=== PATIENT | male | born 1930 | race Caucasian/White ===

== ENCOUNTER → 2017-03-29 | Outpatient (CLI) | payer MEDICARE, OTHER ==
[~2017-03-29] MED LIST: ASPIR LOW81 MG PO; ASPIRIN81 M1 PO; ATIVAN1 MG PO; CALCIUM + D 6001 TA1 PO; CENTRUM SINGLE400 IU PO; CIPROFLOXACIN500 MG PO; CLEOCIN HCL300 MG PO; DIOVAN40 MG PO; FLAGYL 500 MG500 MG PO; FLOMAX0.4 MG PO; LUTEIN20 MG PO; MOM30 ML PO; NATURE S BLEND PO; NITROLINGU0.4 MG/ACT SL; OCUVITE1 TA1 PO; PLAVIX75 MG PO; SIMVASTATIN20 MG PO; THE MEDICINE S400 IU PO; TYLENOL325 M1 PO; VISION VITAMINS1 TAB PO; VITAMIN D2000 IU PO; VITAMIN D400 I1 PO; [UNRECOGNIZED DRUG - REMARK] PO
== END | disposition home or self-care (01) ==
LOC: RAD 12:20
DX: M25.551 Pain in right hip (principal)

== ENCOUNTER 2017-12-19 23:53 | Emergency (ER) | payer MEDICARE, OTHER ==
[~2017-12-19] VITALS: Ht 172.7 cm; Wt 68.9 kg
[2017-12-20 00:38] LABS: BASO % 0.1 % (0.0-1.0); EOS % 0.1 % (1.0-4.0); HEMATOCRIT 33.3 % (42.0-52.0); HEMOGLOBIN 11.1 g/dl (14.0-18.0); LYMPH # 0.6 10*3/uL (1.3-4.4); LYMPH % 7.1 % (27.0-41.0); MEAN CELL VOLUME 94.3 fl (80.0-94.0); MEAN CORPUSCULAR HGB 31.4 pg (27.0-31.0); MEAN CORPUSCULAR HGB CONC 33.3 g/dl (33.0-37.0); MEAN PLATELET VOLUME 10.7 fl (9.6-12.3); MONO # 0.3 10*3/uL (0.1-1.0); MONO % 3.3 % (3.0-9.0); NEUT # 7.2 10*3/uL (2.3-7.9); NEUT % 89.2 % (47.0-73.0); PLATELET COUNT AUTOMATED 134 10*3/uL (130-400); RED BLOOD COUNT 3.53 10*6/uL (4.50-5.90); RED CELL DISTRI WIDTH 12.6 % (0-14.5); WHITE BLOOD COUNT 8.1 10*3/uL (4.8-10.8)
[2017-12-20 01:00] LABS: ALBUMIN 4.6 gm/dl (3.1-4.5); ALKALINE PHOSPHATASE 67 U/L (45-117); BUN 39 mg/dl (7-24); CHLORIDE 104 mmol/L (98-107); CREATININE 1.79 mg/dL (0.70-1.30); LIPASE 173 U/L (73-393); POTASSIUM 4.8 mmol/L (3.5-5.1); SGPT/ALT 26 U/L (12-78); SODIUM 140 mmol/L (136-145); TOTAL PROTEIN 7.7 gm/dL (6.4-8.2)
[2017-12-20 01:02] LABS: SGOT/AST 32 IU/L (3-35)
[2017-12-20 01:03] LABS: TROPONIN I < 0.015 ng/ml (<0.045)
[2017-12-20 01:45] LABS: INTERNATIONAL NORM RATIO 1.1 (2.0-3.5)
[2017-12-20 02:41] VITALS: BP 169/76
== END 2017-12-20 03:03 | disposition short-term general hospital (02) ==
LOC: ED 23:53
PROVIDERS: Physician Assistant
DX: K56.699 Other intestinal obstruction unspecified as to partial versus complete obstruction (principal); Z88.8 Allergy status to other drugs, medicaments and biological substances; Z79.82 Long term (current) use of aspirin

== ENCOUNTER → 2018-01-01 | Outpatient (CLI) | payer MEDICARE, OTHER | END | disposition home or self-care (01) | LOC: RAD 13:52 | DX: M51.36 Other intervertebral disc degeneration, lumbar region (principal); M47.896 Other spondylosis, lumbar region; M47.897 Other spondylosis, lumbosacral region ==

== ENCOUNTER → 2018-01-15 | Outpatient (CLI) | payer MEDICARE, OTHER | END | disposition home or self-care (01) | LOC: US 09:49 | DX: M47.16 Other spondylosis with myelopathy, lumbar region (principal); M79.651 Pain in right thigh ==

== ENCOUNTER → 2018-01-17 | Outpatient (CLI) | payer MEDICARE, OTHER | END | disposition home or self-care (01) | LOC: MRI 00:19 | DX: M48.061 Spinal stenosis, lumbar region without neurogenic claudication (principal); M47.16 Other spondylosis with myelopathy, lumbar region; Z91.81 History of falling ==

== ENCOUNTER → 2018-03-14 | Outpatient (CLI) | payer MEDICARE, OTHER | END | disposition home or self-care (01) | LOC: MRI 08:43 | DX: M50.320 Other cervical disc degeneration, mid-cervical region, unspecified level (principal); M54.12 Radiculopathy, cervical region ==

== ENCOUNTER → 2018-09-04 | Outpatient (CLI) | payer MEDICARE, OTHER | END | disposition home or self-care (01) | LOC: RAD 09:53 | DX: R05 Cough (principal); R09.89 Other specified symptoms and signs involving the circulatory and respiratory systems; I10 Essential (primary) hypertension; Z87.891 Personal history of nicotine dependence ==

== ENCOUNTER → 2018-11-28 | Outpatient (CLI) | payer MEDICARE, OTHER | END | disposition home or self-care (01) | LOC: RESCLI 12:56 | DX: K52.9 Noninfective gastroenteritis and colitis, unspecified (principal); R68.89 Other general symptoms and signs; R00.1 Bradycardia, unspecified; M19.90 Unspecified osteoarthritis, unspecified site; I10 Essential (primary) hypertension; E78.00 Pure hypercholesterolemia, unspecified; I73.9 Peripheral vascular disease, unspecified; Z79.82 Long term (current) use of aspirin; Z79.899 Other long term (current) drug therapy; Z88.8 Allergy status to other drugs, medicaments and biological substances ==

== ENCOUNTER → 2018-11-29 | Outpatient (CLI) | payer MEDICARE, OTHER | END | disposition home or self-care (01) | LOC: RAD 09:32 | DX: R05 Cough (principal); R11.2 Nausea with vomiting, unspecified; R19.7 Diarrhea, unspecified; Z87.891 Personal history of nicotine dependence ==

== ENCOUNTER 2019-08-14 09:26 | Inpatient (IN) | payer MEDICARE, OTHER ==
[2019-08-14] VITALS (8 sets, daily range): BP systolic 132–155; BP diastolic 53–85
[~2019-08-14] VITALS: Ht 172.7 cm; Wt 71.3 kg
[2019-08-14 10:00] LABS: BASO % 0.2 % (0.0-1.0); EOS % 0.2 % (1.0-4.0); HEMATOCRIT 34.3 % (42.0-52.0); HEMOGLOBIN 11.4 g/dl (14.0-18.0); LYMPH # 0.8 10*3/uL (1.3-4.4); LYMPH % 8.7 % (27.0-41.0); MEAN CELL VOLUME 96.1 fl (80.0-94.0); MEAN CORPUSCULAR HGB 31.9 pg (27.0-31.0); MEAN CORPUSCULAR HGB CONC 33.2 g/dl (33.0-37.0); MEAN PLATELET VOLUME 10.7 fl (9.6-12.3); MONO # 0.7 10*3/uL (0.1-1.0); MONO % 8.3 % (3.0-9.0); NEUT # 7.2 10*3/uL (2.3-7.9); PLATELET COUNT AUTOMATED 118 10*3/uL (130-400); RED BLOOD COUNT 3.57 10*6/uL (4.50-5.90); RED CELL DISTRI WIDTH 11.7 % (0-14.5); WHITE BLOOD COUNT 8.8 10*3/uL (4.8-10.8)
[2019-08-14 10:01] LABS: BILIRUBIN NEGATIVE (NEGATIVE); BLOOD 3+ (NEGATIVE); CLARITY CLEAR (CLEAR); COLOR YELLOW (YELLOW); GLUCOSE NEGATIVE (NEGATIVE); KETONE NEGATIVE (NEGATIVE); LEUKO ESTERASE NEGATIVE (NEGATIVE); NITRITE NEGATIVE (NEGATIVE); UROBILINOGEN 0.2 E.U./dl (0.2-1.0)
[2019-08-14 10:12] LABS: EPITHELIAL CELLS 0-2; RBC 51-100 rbc/hpf (0-2)
[2019-08-14 10:16] LABS: ALBUMIN 3.7 gm/dl (3.1-4.5); CREATININE 1.44 mg/dL (0.70-1.30); POTASSIUM 4.3 mmol/L (3.5-5.1); TOTAL PROTEIN 7.1 gm/dL (6.4-8.2)
[2019-08-14 16:53] LABS: BASO % 0.3 % (0.0-1.0); EOS % 0.3 % (1.0-4.0); HEMATOCRIT 31.7 % (42.0-52.0); HEMOGLOBIN 10.8 g/dl (14.0-18.0); LYMPH # 0.8 10*3/uL (1.3-4.4); LYMPH % 9.7 % (27.0-41.0); MEAN CELL VOLUME 95.8 fl (80.0-94.0); MEAN CORPUSCULAR HGB 32.6 pg (27.0-31.0); MEAN CORPUSCULAR HGB CONC 34.1 g/dl (33.0-37.0); MEAN PLATELET VOLUME 10.8 fl (9.6-12.3); MONO # 0.4 10*3/uL (0.1-1.0); MONO % 4.6 % (3.0-9.0); NEUT # 6.7 10*3/uL (2.3-7.9); NEUT % 84.8 % (47.0-73.0); PLATELET COUNT AUTOMATED 114 10*3/uL (130-400); RED BLOOD COUNT 3.31 10*6/uL (4.50-5.90); RED CELL DISTRI WIDTH 11.7 % (0-14.5); WHITE BLOOD COUNT 7.9 10*3/uL (4.8-10.8)
--- NOTE | 2019-08-14 18:40 | NUR ---
A 89, admitted to , under the services of BOAZ Zapata DO with a diagnosis of UNDIFFERENTIATED ABDOMINAL PAIN. Chief complaint is COLD SYMPTOMS. Patient arrived via wheel chair from ER. Monitor applied. Initial assessment completed. Vital signs taken and recorded. BOAZ ZAPATA DO notified of admission to the unit. Orders received. See assessment for past medical history, medications and allergies. Patient and/or family oriented to unit. [facility] visitation policy reviewed. Clothing/patient valuable form completed. CATY PINO
[2019-08-14] MEDS ORDERED: LOSARTAN POTASS25 M1 PO (18:53)
[2019-08-14] MEDS ORDERED: MELATONIN3 MG PO (18:54)
[2019-08-14] MEDS ORDERED: CITALOPRAM20 MG PO (18:55)
--- NOTE | 2019-08-14 19:19 | NUR ---
MED REC UPDATED PER PAPERWORK PROVIDED BY PATIENT.
--- NOTE | 2019-08-14 19:30 | NUR ---
CONSULT CALLED TO DR VALENTINE PER PHYSICIAN ORDER. PHYSICIAN STATES THAT HE ALREADY HAS SEEN PATIENT AND THAT HE WILL PUT ORDERS IN.
--- NOTE | 2019-08-14 19:32 | NUR ---
DR BRIDGES NOTIFIED THAT PT MED REC IS UPDATED PER PT PAPERWORK THAT HE PROVIDED.
--- NOTE | 2019-08-14 22:49 | NUR ---
RESTING. TOLERATED ROUTINE MEDS WELL. NO VOICED COMPLAINTS. CALL LIGHT IN REACH. IVF GOING WITH EASE.
--- NOTE | 2019-08-14 23:00 | NUR ---
ASSUMED CARE FOR THIS PT AT THIS TIME. PT RESTING QUIETLY IN BED. NO C/O VOICED AT PRESENT TIME. CALL LIGHT IN REACH.
[2019-08-15] VITALS: BP 139/52
[2019-08-15 06:35] LABS: BASO % 0.1 % (0.0-1.0); EOS % 0.4 % (1.0-4.0); HEMATOCRIT 31.1 % (42.0-52.0); HEMOGLOBIN 10.5 g/dl (14.0-18.0); LYMPH # 1.1 10*3/uL (1.3-4.4); LYMPH % 14.2 % (27.0-41.0); MEAN CORPUSCULAR HGB 31.7 pg (27.0-31.0); MEAN CORPUSCULAR HGB CONC 33.8 g/dl (33.0-37.0); MEAN PLATELET VOLUME 10.6 fl (9.6-12.3); MONO # 0.6 10*3/uL (0.1-1.0); MONO % 8.7 % (3.0-9.0); NEUT # 5.6 10*3/uL (2.3-7.9); NEUT % 76.2 % (47.0-73.0); PLATELET COUNT AUTOMATED 118 10*3/uL (130-400); RED BLOOD COUNT 3.31 10*6/uL (4.50-5.90); RED CELL DISTRI WIDTH 11.6 % (0-14.5); WHITE BLOOD COUNT 7.4 10*3/uL (4.8-10.8)
[2019-08-15 07:05] LABS: ALBUMIN 3.2 gm/dl (3.1-4.5); ALKALINE PHOSPHATASE 76 U/L (45-117); BUN 24 mg/dl (7-24); CHLORIDE 108 mmol/L (98-107); CHOLESTEROL 106 mg/dL (<200); CREATININE 1.16 mg/dL (0.70-1.30); HDL CHOLESTEROL 41 mg/dl (40-60); LDL CHOLESTEROL 53 mg/dL (9-159); PHOSPHOROUS 3.4 mg/dL (2.5-4.9); SGOT/AST 18 IU/L (3-35); SGPT/ALT 19 U/L (12-78); SODIUM 138 mmol/L (136-145); TOTAL PROTEIN 6.6 gm/dL (6.4-8.2); TRIGLYCERIDES 59 mg/dl (<150); VLDL CHOLESTEROL 12 mg/dL (6-40)
[2019-08-15 07:10] LABS: THYROID STIM HORMONE (HS) 0.278 uIU/ml (0.358-4.75)
--- NOTE | 2019-08-15 07:55 | NUR ---
24 HR chart check completed.
[2019-08-15 08:00] VITALS: BP 140/72
[2019-08-15 08:13] LABS: VITAMIN D, 25-HYDROXY 32.6 ng/mL (30-100)
[2019-08-15 08:16] VITALS: BP 132/70
--- NOTE | 2019-08-15 09:00 | NUR ---
Field Care Coordinator in to talk to patient. Patient states lives at home with alone. There are few steps in the home. Physician: jose swann Pharmacy: [facility] Home health services: none Patient's level of ADLs: INDEPENDENT Patient has working utilities: all working DME: none Follow-up physician's appointment after d/c: will be made by hospitalist nurse director upon discharge Does patient want to access PORTAL?: no Discharge plan discussed with patient, patient lives at home alone, his is in a nursing facility and he visits her daily, drives, he states he will be returning home and denies any home needs. MARY CAMPO
[2019-08-15 12:00] VITALS: BP 147/79
--- NOTE | 2019-08-15 12:00 | NUR ---
PT LYING IN BED, RESPIRATIONS EASY AND UNLABORED WITH NO S/S OF DISTRESS. NO COMPLAINTS VOICED AT THIS TIME. PT STATES THAT HE FEELS MUCH BETTER FROM YESTERDAY. CALL LIGHT IN REACH.
[2019-08-15 16:00] VITALS: BP 126/66
[2019-08-15 20:00] VITALS: BP 119/53
[2019-08-16] VITALS: BP 133/56
[2019-08-16 06:32] LABS: BASO % 0.1 % (0.0-1.0); EOS % 0.1 % (1.0-4.0); HEMATOCRIT 32.4 % (42.0-52.0); HEMOGLOBIN 10.6 g/dl (14.0-18.0); LYMPH % 12.5 % (27.0-41.0); MEAN CELL VOLUME 96.1 fl (80.0-94.0); MEAN CORPUSCULAR HGB 31.5 pg (27.0-31.0); MEAN CORPUSCULAR HGB CONC 32.7 g/dl (33.0-37.0); MEAN PLATELET VOLUME 11.1 fl (9.6-12.3); MONO # 0.7 10*3/uL (0.1-1.0); MONO % 9.7 % (3.0-9.0); NEUT # 5.9 10*3/uL (2.3-7.9); NEUT % 77.3 % (47.0-73.0); PLATELET COUNT AUTOMATED 123 10*3/uL (130-400); RED BLOOD COUNT 3.37 10*6/uL (4.50-5.90); RED CELL DISTRI WIDTH 11.6 % (0-14.5); WHITE BLOOD COUNT 7.6 10*3/uL (4.8-10.8)
[2019-08-16 06:40] LABS: BUN 28 mg/dl (7-24); CHLORIDE 104 mmol/L (98-107); POTASSIUM 4.9 mmol/L (3.5-5.1); SODIUM 136 mmol/L (136-145)
[2019-08-16 06:42] LABS: CREATININE 1.25 mg/dL (0.70-1.30)
[2019-08-16 08:00] VITALS: BP 138/64
[2019-08-16 12:00] VITALS: BP 138/64
[2019-08-16 16:00] VITALS: BP 151/62
--- NOTE | 2019-08-16 18:10 | NUR ---
INFORMED DR. CAMARGO THAT PATIENT IS REQUESTING FROPS FOR HIS EYES BECASUE THEY ARE DRAINING AND MATTED. DRAINAGE IS THICK AND YELLOW.
[2019-08-16 20:00] VITALS: BP 113/51
--- NOTE | 2019-08-16 23:52 | NUR ---
PT MEDICATED WITH PRN TYLENOL FOR ELEVATED TEMPERATURE. WILL MONITOR FOR EFFECTIVENESS.
[2019-08-17] VITALS: BP 111/54
--- NOTE | 2019-08-17 01:00 | NUR ---
PT'S TEMPERATURE NOT 98.0. PRN TYLENOL EFFECTIVE.
[2019-08-17 08:00] VITALS: BP 156/61
[2019-08-17 12:00] VITALS: BP 134/79
[2019-08-17 16:00] VITALS: BP 145/56
--- NOTE | 2019-08-17 18:59 | NUR ---
24 HR CHART CHECK COMPLETE.
--- NOTE | 2019-08-17 19:20 | NUR ---
PT IS RESTING IN BED AT THIS TIME. HE STATES THAT HE STILL DOES NOT FEEL WELL. DISCHARGE WITH YELLOWISH TINGE NOTED TO RIGHT EYE. TEMPERATURE AT THIS TIME IS 98.6 WHICH IS DOWN FROM A PREVIOUS TEMP OF 102.5 AFTER THE ADMINISTRATION OF TYLENOL AT 1547. RESPS ARE EASY AND NONLABORED. NO OTHER S/S OF DISTRESS NOTED. CALL LIGHT IS WITHIN REACH, WILL CONTINUE TO MONITOR.
[2019-08-17 20:00] VITALS: BP 126/58
--- NOTE | 2019-08-17 22:06 | NUR ---
PT MEDICATED WITH PRN TYLENOL FOR C/O HEADACHE RATED 4/10. WILL MONITOR FOR EFFECTIVENESS.
--- NOTE | 2019-08-17 23:00 | NUR ---
PT STATES THAT HE IS STILL EXPERIENCING PAIN. TYLENOL INEFFECTIVE.
--- NOTE | 2019-08-17 23:25 | NUR ---
DR DIA CALLED REGARDING C/O SHARP PAINS IN THE RIGHT SIDE OF PT'S HEAD. ORDERS RECIEVED.
[2019-08-18] VITALS: BP 123/51; BP 124/51
[2019-08-18 06:33] LABS: CREATININE 1.35 mg/dL (0.70-1.30)
[2019-08-18 06:37] LABS: BASO % 0.3 % (0.0-1.0); EOS # 0.2 10*3/uL (0.0-0.4); EOS % 2.3 % (1.0-4.0); HEMATOCRIT 34.3 % (42.0-52.0); HEMOGLOBIN 11.7 g/dl (14.0-18.0); LYMPH # 1.9 10*3/uL (1.3-4.4); LYMPH % 20.7 % (27.0-41.0); MEAN CORPUSCULAR HGB 31.9 pg (27.0-31.0); MEAN CORPUSCULAR HGB CONC 34.1 g/dl (33.0-37.0); MEAN PLATELET VOLUME 10.7 fl (9.6-12.3); MONO # 0.7 10*3/uL (0.1-1.0); MONO % 8.1 % (3.0-9.0); NEUT # 6.2 10*3/uL (2.3-7.9); NEUT % 68.1 % (47.0-73.0); RED BLOOD COUNT 3.67 10*6/uL (4.50-5.90); RED CELL DISTRI WIDTH 11.5 % (0-14.5); WHITE BLOOD COUNT 9.1 10*3/uL (4.8-10.8)
[2019-08-18 06:38] LABS: PLATELET COUNT AUTOMATED 183 10*3/uL (130-400)
[2019-08-18 06:39] LABS: MEAN CELL VOLUME 93.5 fl (80.0-94.0)
--- NOTE | 2019-08-18 07:59 | NUR ---
PT RESTING IN BED. NO DISTRESS NOTED. WILL MONITOR
[2019-08-18 08:00] VITALS: BP 140/51
[2019-08-18 12:00] VITALS: BP 125/54
--- NOTE | 2019-08-18 15:00 | NUR ---
ASSUMED CARE FOR THIS PT AT THIS TIME. PT CONTINUES TO C/O WATERY EYES, RHINORRHEA, FACIAL DISCOMFORT, AND PRODUCTIVE COUGH. PT STATES TYLENOL IS INEFFECTIVE. PT TEACHING GIVEN ON BLOOD WORK INVOLVING KIDNEYS IS ELEVATED AND NOT ABLE TO ADMINISTER IBUPROFEN AT THIS TIME. CALL LIGHT IN REACH.
--- NOTE | 2019-08-18 15:14 | NUR ---
PT REQUESTED AND GIVEN TYLENOL FOR C/O GEN PAIN PT RATES PAIN 5/10 WILL MONITOR
[2019-08-18 16:00] VITALS: BP 119/49
[2019-08-18 20:00] VITALS: BP 129/46
--- NOTE | 2019-08-18 21:00 | NUR ---
DR. ALLRED ADVISED OF PT'S CONTINUED C/O H/A. ORDER RCVD FOR NORCO 5/325MG TAB PO X1 NOW.
[2019-08-19] VITALS: BP 123/51
[2019-08-19 04:00] VITALS: BP 130/57
--- NOTE | 2019-08-19 07:50 | NUR ---
PT RESTING IN BED, NO DISTRESS NOTED. WILL MONITOR
[2019-08-19 08:00] VITALS: BP 119/56
--- NOTE | 2019-08-19 09:00 | NUR ---
case management visits with patient, he states he will return home when medically stable, patient declines any home services, case management will follow for any needs
--- NOTE | 2019-08-19 10:49 | NUR ---
Another Multi-Disciplinary Team meeting was held on 08/19/19, for the purpose of discharge planning. patient will be discharged today if medically stable, no home needs at this time MARY CAMPO
[2019-08-19 12:00] VITALS: BP 126/56
[2019-08-19] MEDS ORDERED: AVPAK AZITHROM250 M1 PO (13:29)
[2019-08-19] MEDS ORDERED: LEADER EYE ITCH5 ML OPH (13:29)
[2019-08-19] MEDS ORDERED: GOOD NEIGHBOR L10 MG PO (13:29)
[2019-08-19] MEDS ORDERED: FLONASE ALLERG9.9 ML NAS (13:29)
--- NOTE | 2019-08-19 15:53 | NUR ---
Discharge instructions reviewed with patient/family. Patient receptive and verbalizes understanding. Follow-up care arranged. Written instructions given to patient/family. DUDLEY BENOIT
== END 2019-08-19 15:53 | disposition home or self-care (01) | DRG 865 ==
LOC: ED 09:26 → EDHOLD 17:47 → 5E 17:47
PROVIDERS: Emergency Medicine; Student in an Organized Health Care Education/Training Program; ADMIT Internal Medicine
DX: B34.9 Viral infection, unspecified (principal); N17.0 Acute kidney failure with tubular necrosis; K59.00 Constipation, unspecified; D53.9 Nutritional anemia, unspecified; I73.9 Peripheral vascular disease, unspecified; R73.9 Hyperglycemia, unspecified; D72.9 Disorder of white blood cells, unspecified; D72.810 Lymphocytopenia; M41.85 Other forms of scoliosis, thoracolumbar region; D69.6 Thrombocytopenia, unspecified; I10 Essential (primary) hypertension; E78.5 Hyperlipidemia, unspecified; N40.0 Benign prostatic hyperplasia without lower urinary tract symptoms; Z87.891 Personal history of nicotine dependence; Z91.041 Radiographic dye allergy status; Z91.09 Other allergy status, other than to drugs and biological substances; Z82.49 Family history of ischemic heart disease and other diseases of the circulatory system; Z86.718 Personal history of other venous thrombosis and embolism; Z84.1 Family history of disorders of kidney and ureter; Z79.899 Other long term (current) drug therapy; Z79.82 Long term (current) use of aspirin; Z79.02 Long term (current) use of antithrombotics/antiplatelets

== ENCOUNTER → 2020-11-13 | Outpatient (CLI) | payer MEDICARE, OTHER ==
[~2020-11-13] MED LIST changes: +ASPIRIN CHEWABL81 MG PO; +AVPAK AZITHROM250 M1 PO; +CELEXA20 MG PO; +CITALOPRAM20 MG PO; +COZAAR25 M1 PO; +DECADRON6 M1 PO; +FLONASE ALLERG9.9 ML NAS; +GOOD NEIGHBOR L10 MG PO; +LEADER EYE ITCH5 ML OPH; +LOSARTAN POTASS25 M1 PO; +MELATONIN3 MG PO; +PLAVIX75 M1 PO; +XARELTO10 MG PO
== END | disposition home or self-care (01) ==
LOC: COVID19 09:42
PROVIDERS: ATTEND Internal Medicine
DX: U07.1 COVID-19 (principal)

== ENCOUNTER 2020-11-19 11:43 | Inpatient (IN) | payer MEDICARE, OTHER ==
[~2020-11-19] VITALS: Ht 172.7 cm; Wt 67.8 kg
[2020-11-19] VITALS (9 sets, daily range): BP systolic 103–148; BP diastolic 60–74
[~2020-11-19 11:43] MED LIST changes: -ASPIRIN CHEWABL81 MG PO; -CELEXA20 MG PO; -COZAAR25 M1 PO; -DECADRON6 M1 PO; -PLAVIX75 M1 PO; -XARELTO10 MG PO
[2020-11-19 12:26] LABS: BASO % 0.2 % (0.0-1.0); HEMATOCRIT 36.5 % (42.0-52.0); LYMPH # 0.7 10*3/uL (1.3-4.4); LYMPH % 17.8 % (27.0-41.0); MEAN CELL VOLUME 93.6 fl (80.0-94.0); MEAN CORPUSCULAR HGB CONC 33.2 g/dl (33.0-37.0); MEAN PLATELET VOLUME 10.7 fl (9.6-12.3); MONO # 0.2 10*3/uL (0.1-1.0); MONO % 5.9 % (3.0-9.0); NEUT # 3.1 10*3/uL (2.3-7.9); NEUT % 75.9 % (47.0-73.0); PLATELET COUNT AUTOMATED 124 10*3/uL (130-400); RED CELL DISTRI WIDTH 11.9 % (0-14.5); WHITE BLOOD COUNT 4.1 10*3/uL (4.8-10.8)
[2020-11-19 12:38] LABS: ACT PARTIAL THROMBO TIME 32.6 SECONDS (20.0-32.1)
[2020-11-19 12:42] LABS: ALBUMIN 3.5 gm/dl (3.1-4.5); CREATININE 1.57 mg/dL (0.70-1.30); POTASSIUM 4.1 mmol/L (3.5-5.1); TOTAL PROTEIN 7.3 gm/dL (6.4-8.2)
[2020-11-19 12:54] LABS: TROPONIN I 0.087 ng/ml (<0.045)
[2020-11-19] MEDS ORDERED: COZAAR25 M1 PO (17:09)
[2020-11-19] MEDS ORDERED: ASPIRIN CHEWABL81 MG PO (17:10)
[2020-11-19] MEDS ORDERED: CELEXA20 MG PO (17:10)
[2020-11-19] MEDS ORDERED: FLOMAX0.4 MG PO (17:11)
[2020-11-19] MEDS ORDERED: PLAVIX75 M1 PO (17:11)
[2020-11-19] MEDS ORDERED: SIMVASTATIN20 MG PO (17:12)
[2020-11-19 17:51] LABS: ABG BASE EXCESS -0.7 mmol/L (-2.0-2.0); ARTERIAL BLOOD GAS PH 7.47 (7.35-7.45)
[2020-11-20 00:25] VITALS: BP 139/71
[2020-11-20 02:36] VITALS: BP 145/74
[2020-11-20 05:44] VITALS: BP 144/71
[2020-11-20 05:53] LABS: ALBUMIN 3.2 gm/dl (3.1-4.5); ALKALINE PHOSPHATASE 60 U/L (45-117); BUN 40 mg/dl (7-24); CHLORIDE 104 mmol/L (98-107); CPK 150 U/L (39-308); CREATININE 1.28 mg/dL (0.70-1.30); LDH 398 U/L (87-241); POTASSIUM 4.4 mmol/L (3.5-5.1); SGOT/AST 137 IU/L (3-35); SGPT/ALT 112 U/L (12-78); SODIUM 135 mmol/L (136-145); TOTAL PROTEIN 6.9 gm/dL (6.4-8.2)
[2020-11-20 06:15] LABS: HEMATOCRIT 36.3 % (42.0-52.0); LYMPH % 21.6 % (27.0-41.0); MEAN CELL VOLUME 93.6 fl (80.0-94.0); MEAN CORPUSCULAR HGB 30.7 pg (27.0-31.0); MEAN CORPUSCULAR HGB CONC 32.8 g/dl (33.0-37.0); MEAN PLATELET VOLUME 10.6 fl (9.6-12.3); MONO # 0.2 10*3/uL (0.1-1.0); MONO % 5.5 % (3.0-9.0); NEUT # 3.2 10*3/uL (2.3-7.9); NEUT % 72.7 % (47.0-73.0); PLATELET COUNT AUTOMATED 124 10*3/uL (130-400); RED BLOOD COUNT 3.88 10*6/uL (4.50-5.90); WHITE BLOOD COUNT 4.4 10*3/uL (4.8-10.8)
[2020-11-20 06:41] VITALS: BP 135/72
[2020-11-20 11:19] VITALS: BP 131/69
[2020-11-20 19:52] VITALS: BP 128/78
[2020-11-21 06:04] LABS: HEMATOCRIT 34.5 % (42.0-52.0); LYMPH # 0.6 10*3/uL (1.3-4.4); LYMPH % 14.2 % (27.0-41.0); MEAN CELL VOLUME 91.5 fl (80.0-94.0); MEAN CORPUSCULAR HGB 30.5 pg (27.0-31.0); MEAN CORPUSCULAR HGB CONC 33.3 g/dl (33.0-37.0); MEAN PLATELET VOLUME 10.7 fl (9.6-12.3); MONO # 0.4 10*3/uL (0.1-1.0); MONO % 8.3 % (3.0-9.0); NEUT # 3.3 10*3/uL (2.3-7.9); NEUT % 77.3 % (47.0-73.0); PLATELET COUNT AUTOMATED 127 10*3/uL (130-400); RED BLOOD COUNT 3.77 10*6/uL (4.50-5.90); RED CELL DISTRI WIDTH 11.8 % (0-14.5); WHITE BLOOD COUNT 4.2 10*3/uL (4.8-10.8)
[2020-11-21 06:05] VITALS: BP 129/78
[2020-11-21 06:20] LABS: ALBUMIN 2.9 gm/dl (3.1-4.5); BUN 36 mg/dl (7-24); CHLORIDE 105 mmol/L (98-107); POTASSIUM 4.2 mmol/L (3.5-5.1); SODIUM 137 mmol/L (136-145)
[2020-11-21 06:25] LABS: ALKALINE PHOSPHATASE 63 U/L (45-117); CREATININE 1.14 mg/dL (0.70-1.30); LDH 420 U/L (87-241); SGOT/AST 200 IU/L (3-35); SGPT/ALT 183 U/L (12-78); TOTAL PROTEIN 6.5 gm/dL (6.4-8.2)
[2020-11-21 06:39] LABS: CPK 91 U/L (39-308)
[2020-11-21 08:50] VITALS: BP 140/64
[2020-11-21 12:00] VITALS: BP 139/60
[2020-11-21 16:00] VITALS: BP 134/70
[2020-11-21 20:00] VITALS: BP 131/67
[2020-11-22] VITALS: BP 131/67; BP 141/65
[2020-11-22 06:31] LABS: LYMPH # 0.9 10*3/uL (1.3-4.4); LYMPH % 11.7 % (27.0-41.0); MEAN CELL VOLUME 90.9 fl (80.0-94.0); MEAN CORPUSCULAR HGB 30.6 pg (27.0-31.0); MEAN CORPUSCULAR HGB CONC 33.7 g/dl (33.0-37.0); MEAN PLATELET VOLUME 10.8 fl (9.6-12.3); MONO # 0.5 10*3/uL (0.1-1.0); MONO % 6.2 % (3.0-9.0); NEUT # 6.5 10*3/uL (2.3-7.9); NEUT % 81.7 % (47.0-73.0); PLATELET COUNT AUTOMATED 157 10*3/uL (130-400); RED BLOOD COUNT 3.85 10*6/uL (4.50-5.90); RED CELL DISTRI WIDTH 11.7 % (0-14.5)
[2020-11-22 06:41] LABS: BILIRUBIN Negative (Negative); BLOOD Negative (Negative); CLARITY Clear (Clear); COLOR Yellow (Yellow); GLUCOSE Negative (Negative); KETONE Negative (Negative); LEUKO ESTERASE Negative (Negative); NITRITE Negative (Negative); SPECIFIC GRAVITY 1.025 (1.001-1.030)
[2020-11-22 06:48] LABS: BACTERIA 2+; EPITHELIAL CELLS 0-2; WBC 0-2 wbc/hpf (0-5)
[2020-11-22 07:02] LABS: ALBUMIN 2.7 gm/dl (3.1-4.5); BUN 44 mg/dl (7-24); CHLORIDE 105 mmol/L (98-107); POTASSIUM 4.5 mmol/L (3.5-5.1); SODIUM 136 mmol/L (136-145)
[2020-11-22 07:07] LABS: ALKALINE PHOSPHATASE 61 U/L (45-117); CPK 63 U/L (39-308); CREATININE 1.16 mg/dL (0.70-1.30); LDH 367 U/L (87-241); SGOT/AST 123 IU/L (3-35); SGPT/ALT 147 U/L (12-78); TOTAL PROTEIN 6.3 gm/dL (6.4-8.2)
[2020-11-22 08:00] VITALS: BP 121/59
[2020-11-22 12:00] VITALS: BP 122/66
[2020-11-22 16:00] VITALS: BP 111/53
[2020-11-22 20:00] VITALS: BP 133/60
[2020-11-23] VITALS: BP 144/66
[2020-11-23 05:39] LABS: ALBUMIN 2.7 gm/dl (3.1-4.5); ALKALINE PHOSPHATASE 55 U/L (45-117); CHLORIDE 106 mmol/L (98-107); CREATININE 1.25 mg/dL (0.70-1.30); LDH 360 U/L (87-241); POTASSIUM 4.7 mmol/L (3.5-5.1); SGOT/AST 85 IU/L (3-35); SGPT/ALT 124 U/L (12-78); SODIUM 139 mmol/L (136-145); TOTAL PROTEIN 6.2 gm/dL (6.4-8.2)
[2020-11-23 05:54] LABS: BUN 54 mg/dl (7-24)
[2020-11-23 06:19] LABS: HEMATOCRIT 33.2 % (42.0-52.0); LYMPH # 0.7 10*3/uL (1.3-4.4); MEAN CORPUSCULAR HGB 31.3 pg (27.0-31.0); MEAN PLATELET VOLUME 11.1 fl (9.6-12.3); MONO # 0.6 10*3/uL (0.1-1.0); NEUT # 7.9 10*3/uL (2.3-7.9); NEUT % 85.5 % (47.0-73.0); PLATELET COUNT AUTOMATED 182 10*3/uL (130-400); RED BLOOD COUNT 3.61 10*6/uL (4.50-5.90); RED CELL DISTRI WIDTH 11.8 % (0-14.5); WHITE BLOOD COUNT 9.2 10*3/uL (4.8-10.8)
[2020-11-23 08:00] VITALS: BP 126/58
[2020-11-23 12:00] VITALS: BP 136/62
[2020-11-23 16:00] VITALS: BP 119/68
[2020-11-23 20:00] VITALS: BP 135/71
[2020-11-24] VITALS: BP 137/61
[2020-11-24 06:31] LABS: BASO % 0.1 % (0.0-1.0); HEMATOCRIT 34.4 % (42.0-52.0); LYMPH # 0.8 10*3/uL (1.3-4.4); LYMPH % 7.9 % (27.0-41.0); MEAN CELL VOLUME 90.8 fl (80.0-94.0); MEAN CORPUSCULAR HGB 31.1 pg (27.0-31.0); MEAN CORPUSCULAR HGB CONC 34.3 g/dl (33.0-37.0); MEAN PLATELET VOLUME 10.5 fl (9.6-12.3); MONO # 0.5 10*3/uL (0.1-1.0); MONO % 5.1 % (3.0-9.0); NEUT # 8.8 10*3/uL (2.3-7.9); NEUT % 85.7 % (47.0-73.0); PLATELET COUNT AUTOMATED 192 10*3/uL (130-400); RED BLOOD COUNT 3.79 10*6/uL (4.50-5.90); RED CELL DISTRI WIDTH 11.9 % (0-14.5); WHITE BLOOD COUNT 10.3 10*3/uL (4.8-10.8)
[2020-11-24 06:46] LABS: ALBUMIN 2.9 gm/dl (3.1-4.5); ALKALINE PHOSPHATASE 59 U/L (45-117); BUN 48 mg/dl (7-24); CHLORIDE 104 mmol/L (98-107); CREATININE 1.14 mg/dL (0.70-1.30); LDH 379 U/L (87-241); POTASSIUM 4.2 mmol/L (3.5-5.1); SGOT/AST 84 IU/L (3-35); SGPT/ALT 126 U/L (12-78); SODIUM 136 mmol/L (136-145); TOTAL PROTEIN 6.4 gm/dL (6.4-8.2)
[2020-11-24 12:00] VITALS: BP 132/62
[2020-11-24 16:00] VITALS: BP 121/48
[2020-11-24 20:00] VITALS: BP 101/48
[2020-11-25] VITALS: BP 109/82
[2020-11-25 06:54] LABS: BASO % 0.1 % (0.0-1.0); HEMATOCRIT 33.5 % (42.0-52.0); LYMPH # 0.5 10*3/uL (1.3-4.4); MEAN CORPUSCULAR HGB 30.8 pg (27.0-31.0); MEAN CORPUSCULAR HGB CONC 33.4 g/dl (33.0-37.0); MEAN PLATELET VOLUME 10.5 fl (9.6-12.3); MONO # 0.4 10*3/uL (0.1-1.0); MONO % 4.6 % (3.0-9.0); NEUT # 8.5 10*3/uL (2.3-7.9); NEUT % 89.1 % (47.0-73.0); PLATELET COUNT AUTOMATED 214 10*3/uL (130-400); RED BLOOD COUNT 3.64 10*6/uL (4.50-5.90); RED CELL DISTRI WIDTH 11.9 % (0-14.5); WHITE BLOOD COUNT 9.5 10*3/uL (4.8-10.8)
[2020-11-25 06:58] LABS: ALBUMIN 2.6 gm/dl (3.1-4.5); ALKALINE PHOSPHATASE 64 U/L (45-117); BUN 42 mg/dl (7-24); CHLORIDE 106 mmol/L (98-107); LDH 340 U/L (87-241); POTASSIUM 4.5 mmol/L (3.5-5.1); SGOT/AST 63 IU/L (3-35); SGPT/ALT 105 U/L (12-78); SODIUM 139 mmol/L (136-145); TOTAL PROTEIN 5.9 gm/dL (6.4-8.2)
[2020-11-25 08:00] VITALS: BP 131/57
[2020-11-25 12:00] VITALS: BP 123/60
[2020-11-25 16:00] VITALS: BP 103/49
[2020-11-25 20:00] VITALS: BP 135/59
[2020-11-26] VITALS: BP 154/55
[2020-11-26 06:40] LABS: EOS % 0.1 % (1.0-4.0); HEMATOCRIT 31.5 % (42.0-52.0); LYMPH # 0.6 10*3/uL (1.3-4.4); LYMPH % 6.4 % (27.0-41.0); MEAN CELL VOLUME 91.6 fl (80.0-94.0); MEAN CORPUSCULAR HGB 30.2 pg (27.0-31.0); MEAN PLATELET VOLUME 10.1 fl (9.6-12.3); MONO # 0.5 10*3/uL (0.1-1.0); MONO % 4.5 % (3.0-9.0); NEUT # 8.8 10*3/uL (2.3-7.9); PLATELET COUNT AUTOMATED 253 10*3/uL (130-400); RED BLOOD COUNT 3.44 10*6/uL (4.50-5.90)
[2020-11-26 06:58] LABS: ALBUMIN 2.4 gm/dl (3.1-4.5); ALKALINE PHOSPHATASE 62 U/L (45-117); BUN 41 mg/dl (7-24); CHLORIDE 107 mmol/L (98-107); CREATININE 0.95 mg/dL (0.70-1.30); LDH 328 U/L (87-241); POTASSIUM 4.4 mmol/L (3.5-5.1); SGOT/AST 41 IU/L (3-35); SGPT/ALT 84 U/L (12-78); SODIUM 138 mmol/L (136-145); TOTAL PROTEIN 5.8 gm/dL (6.4-8.2)
[2020-11-26 08:00] VITALS: BP 129/56
[2020-11-26 08:32] LABS: ABG BASE EXCESS 0.7 mmol/L (-2.0-2.0); ARTERIAL BLOOD GAS PH 7.493 (7.35-7.45)
[2020-11-26 11:56] VITALS: BP 120/56
[2020-11-26 16:00] VITALS: BP 116/81
[2020-11-26 20:00] VITALS: BP 130/64
[2020-11-27] VITALS: BP 145/60
[2020-11-27 06:09] LABS: BASO % 0.1 % (0.0-1.0); EOS % 0.2 % (1.0-4.0); HEMATOCRIT 32.4 % (42.0-52.0); LYMPH # 0.8 10*3/uL (1.3-4.4); LYMPH % 7.9 % (27.0-41.0); MEAN CELL VOLUME 91.5 fl (80.0-94.0); MEAN CORPUSCULAR HGB 31.1 pg (27.0-31.0); MEAN PLATELET VOLUME 9.9 fl (9.6-12.3); MONO # 0.5 10*3/uL (0.1-1.0); NEUT # 8.5 10*3/uL (2.3-7.9); NEUT % 85.6 % (47.0-73.0); PLATELET COUNT AUTOMATED 298 10*3/uL (130-400); RED BLOOD COUNT 3.54 10*6/uL (4.50-5.90); RED CELL DISTRI WIDTH 11.9 % (0-14.5); WHITE BLOOD COUNT 9.9 10*3/uL (4.8-10.8)
[2020-11-27 06:30] LABS: ALBUMIN 2.4 gm/dl (3.1-4.5); ALKALINE PHOSPHATASE 63 U/L (45-117); BUN 40 mg/dl (7-24); CHLORIDE 105 mmol/L (98-107); CPK 20 U/L (39-308); LDH 311 U/L (87-241); POTASSIUM 4.6 mmol/L (3.5-5.1); SGOT/AST 31 IU/L (3-35); SGPT/ALT 67 U/L (12-78); SODIUM 137 mmol/L (136-145); TOTAL PROTEIN 5.8 gm/dL (6.4-8.2)
[2020-11-27 08:00] VITALS: BP 125/50
[2020-11-27 12:00] VITALS: BP 121/58
[2020-11-27 16:00] VITALS: BP 123/56
[2020-11-27 20:00] VITALS: BP 110/87
[2020-11-28] VITALS: BP 140/56
[2020-11-28 05:55] LABS: ALBUMIN 2.3 gm/dl (3.1-4.5); ALKALINE PHOSPHATASE 61 U/L (45-117); BUN 47 mg/dl (7-24); CHLORIDE 105 mmol/L (98-107); CPK 22 U/L (39-308); CREATININE 0.95 mg/dL (0.70-1.30); LDH 296 U/L (87-241); POTASSIUM 4.8 mmol/L (3.5-5.1); SGOT/AST 26 IU/L (3-35); SGPT/ALT 56 U/L (12-78); SODIUM 134 mmol/L (136-145)
[2020-11-28 06:19] LABS: EOS # 0.1 10*3/uL (0.0-0.4); EOS % 0.8 % (1.0-4.0); HEMATOCRIT 35.3 % (42.0-52.0); LYMPH # 0.6 10*3/uL (1.3-4.4); LYMPH % 6.9 % (27.0-41.0); MEAN CORPUSCULAR HGB 31.1 pg (27.0-31.0); MEAN CORPUSCULAR HGB CONC 32.3 g/dl (33.0-37.0); MEAN PLATELET VOLUME 9.9 fl (9.6-12.3); MONO # 0.5 10*3/uL (0.1-1.0); MONO % 5.7 % (3.0-9.0); NEUT # 7.4 10*3/uL (2.3-7.9); NEUT % 85.3 % (47.0-73.0); PLATELET COUNT AUTOMATED 321 10*3/uL (130-400); RED BLOOD COUNT 3.66 10*6/uL (4.50-5.90); RED CELL DISTRI WIDTH 12.1 % (0-14.5); WHITE BLOOD COUNT 8.7 10*3/uL (4.8-10.8)
[2020-11-28 06:30] LABS: MEAN CELL VOLUME 96.4 fl (80.0-94.0)
[2020-11-28 08:00] VITALS: BP 129/49
[2020-11-28 12:00] VITALS: BP 116/62
[2020-11-28 16:00] VITALS: BP 107/45
[2020-11-28 20:00] VITALS: BP 116/53
[2020-11-29 06:09] LABS: ALBUMIN 2.4 gm/dl (3.1-4.5); ALKALINE PHOSPHATASE 60 U/L (45-117); BUN 52 mg/dl (7-24); CHLORIDE 104 mmol/L (98-107); CPK 23 U/L (39-308); CREATININE 1.13 mg/dL (0.70-1.30); LDH 250 U/L (87-241); POTASSIUM 5.1 mmol/L (3.5-5.1); SGOT/AST 27 IU/L (3-35); SGPT/ALT 50 U/L (12-78); SODIUM 135 mmol/L (136-145); TOTAL PROTEIN 6.1 gm/dL (6.4-8.2)
[2020-11-29 06:20] LABS: EOS # 0.1 10*3/uL (0.0-0.4); EOS % 0.9 % (1.0-4.0); HEMATOCRIT 34.3 % (42.0-52.0); LYMPH # 0.7 10*3/uL (1.3-4.4); LYMPH % 6.5 % (27.0-41.0); MEAN CORPUSCULAR HGB CONC 34.1 g/dl (33.0-37.0); MEAN PLATELET VOLUME 9.8 fl (9.6-12.3); MONO # 0.7 10*3/uL (0.1-1.0); MONO % 7.3 % (3.0-9.0); NEUT # 8.4 10*3/uL (2.3-7.9); NEUT % 84.3 % (47.0-73.0); PLATELET COUNT AUTOMATED 388 10*3/uL (130-400); RED BLOOD COUNT 3.77 10*6/uL (4.50-5.90); RED CELL DISTRI WIDTH 11.9 % (0-14.5)
[2020-11-29 08:00] VITALS: BP 107/63
[2020-11-29 12:00] VITALS: BP 119/53
[2020-11-29] MEDS ORDERED: XARELTO10 MG PO (14:20)
[2020-11-29] MEDS ORDERED: DECADRON6 M1 PO (14:20)
[2020-11-29 16:00] VITALS: BP 110/57
== END 2020-11-29 19:39 | disposition other institution (70) | DRG 177 ==
LOC: ED 11:43 → EDHOLD 15:43 → 4E 11-21 07:15
PROVIDERS: Emergency Medicine; Internal Medicine; Internal Medicine Critical Care Medicine; Registered Nurse; ADMIT Student in an Organized Health Care Education/Training Program; ATTEND Student in an Organized Health Care Education/Training Program
PROC: XW033E5 Introduction of Remdesivir Anti-infective into Peripheral Vein, Percutaneous Approach, New Technology Group 5 (ICD-10-PCS; principal; 2020-11-20)
DX: U07.1 COVID-19 (principal); J96.01 Acute respiratory failure with hypoxia; N17.0 Acute kidney failure with tubular necrosis; J12.82 Pneumonia due to coronavirus disease 2019; E87.1 Hypo-osmolality and hyponatremia; D68.9 Coagulation defect, unspecified; D68.59 Other primary thrombophilia; D61.818 Other pancytopenia; I73.9 Peripheral vascular disease, unspecified; D69.6 Thrombocytopenia, unspecified; N40.0 Benign prostatic hyperplasia without lower urinary tract symptoms; R73.9 Hyperglycemia, unspecified; R29.6 Repeated falls; J30.2 Other seasonal allergic rhinitis; R74.01 Elevation of levels of liver transaminase levels; K59.00 Constipation, unspecified; I10 Essential (primary) hypertension; Z86.718 Personal history of other venous thrombosis and embolism; Z91.041 Radiographic dye allergy status; Z79.899 Other long term (current) drug therapy; Z82.49 Family history of ischemic heart disease and other diseases of the circulatory system; Z79.82 Long term (current) use of aspirin

== ENCOUNTER 2021-01-09 11:18 | Emergency (ER) | payer MEDICARE, OTHER ==
[~2021-01-09] VITALS: Wt 71.7 kg
[~2021-01-09 11:18] MED LIST changes: +ASPIRIN CHEWABL81 MG PO; +CELEXA20 MG PO; +COZAAR25 M1 PO; +DECADRON6 M1 PO; +PLAVIX75 M1 PO; +XARELTO10 MG PO
[2021-01-09 11:37] VITALS: BP 112/66
[2021-01-09 12:15] LABS: BASO % 0.5 % (0.0-1.0); EOS # 0.1 10*3/uL (0.0-0.4); EOS % 1.7 % (1.0-4.0); LYMPH # 1.1 10*3/uL (1.3-4.4); MEAN CELL VOLUME 93.2 fl (80.0-94.0); MEAN CORPUSCULAR HGB 30.8 pg (27.0-31.0); MEAN PLATELET VOLUME 9.9 fl (9.6-12.3); MONO # 0.5 10*3/uL (0.1-1.0); MONO % 7.1 % (3.0-9.0); NEUT # 4.6 10*3/uL (2.3-7.9); NEUT % 72.4 % (47.0-73.0); PLATELET COUNT AUTOMATED 160 10*3/uL (130-400); RED BLOOD COUNT 3.54 10*6/uL (4.50-5.90); RED CELL DISTRI WIDTH 13.2 % (0-14.5); WHITE BLOOD COUNT 6.4 10*3/uL (4.8-10.8)
[2021-01-09 12:27] LABS: ACT PARTIAL THROMBO TIME 26.2 SECONDS (20.0-32.1)
[2021-01-09 12:30] LABS: ALBUMIN 3.1 gm/dl (3.1-4.5); CREATININE 1.4 mg/dL (0.70-1.30); POTASSIUM 4.2 mmol/L (3.5-5.1); TOTAL PROTEIN 6.7 gm/dL (6.4-8.2)
[2021-01-09] MEDS ORDERED: GOOD NEIGHBOR M25 M1 PO (15:17)
== END 2021-01-09 15:33 | disposition home or self-care (01) ==
LOC: ED 11:18
PROVIDERS: Emergency Medicine
DX: H81.12 Benign paroxysmal vertigo, left ear (principal); I10 Essential (primary) hypertension; E78.00 Pure hypercholesterolemia, unspecified; Z91.041 Radiographic dye allergy status; Z79.899 Other long term (current) drug therapy; Z79.82 Long term (current) use of aspirin; Z98.890 Other specified postprocedural states; Z87.891 Personal history of nicotine dependence

== ENCOUNTER → 2021-03-17 | Outpatient (CLI) | payer MEDICARE, OTHER ==
[~2021-03-17] MED LIST changes: +GOOD NEIGHBOR M25 M1 PO
== END | disposition home or self-care (01) ==
LOC: US 00:12
PROVIDERS: ATTEND Specialist
DX: I65.23 Occlusion and stenosis of bilateral carotid arteries (principal)